=== PATIENT | female | born 1960 | race Caucasian/White ===

== ENCOUNTER 2021-02-15 14:51 | Emergency (ER) | payer OTHER, SELFPAY ==
[2021-02-15 15:10] VITALS: BP 132/93; PULSE 102; RESP 16; TEMP 37.1; O2SAT 99
--- NOTE | 2021-02-15 15:28 | ED.FEMALEGU ---
HPI - Female Genitourinary General Chief complaint: Urogenital-Female Stated complaint: UTI,Fever Time Seen by Provider: 02/15/21 15:10 Source: patient, RN notes reviewed and old records reviewed Mode of arrival: ambulatory Limitations: no limitations History of Present Illness HPI Narrative: 61 year old female who presents to express care with complaints of acute burning with urination since yesterday, low grade fevers, urgency and frequency of urination. Patient reports that she started having some suprapubic tenderness and pressure this morning also. She reports no vaginal discharge or itching, denies any concern for STD exposure. Patient has not taken any OTC AZO for her symptoms. MD elicited complaint: dysuria Related Data Home Medications Medication Instructions Recorded Confirmed albuterol sulfate 2 inh INHALATION DIRECTED 02/15/21 02/15/21 famotidine 40 mg PO DAILY 02/15/21 02/15/21 gemfibrozil 600 mg PO DAILY 02/15/21 02/15/21 metformin 500 mg PO DAILY 02/15/21 02/15/21 Allergies Allergy/AdvReac Type Severity Reaction Status Date / Time meperidine Allergy Mild Other Verified 02/15/21 15:31 Review of Systems Review of Systems: CONSTITUTIONAL: positive for low grade fever, chills, or sweats. EYES: Denies visual changes, redness, or discharge. ENT: Denies rhinorrhea, congestion, sore throat, or otalgia. CARDIOVASCULAR: Denies chest pain, palpitations, or edema. RESPIRATORY: Denies cough or dyspnea. GASTROINTESTINAL: suprapubic abdominal pain,no nausea, vomiting, or diarrhea. GENITOURINARY Positive dysuria or hematuria. SKIN: Denies rash or itching. MUSCULOSKELETAL: Denies back pain, joint pain, or myalgia. NEUROLOGIC: Denies headache, numbness, or weakness. PSYCHIATRIC: Denies anxiety or depression. All systems reviewed & are unremarkable except as noted in HPI and below PMFSH Past Medical History Medical History (Updated 02/17/21 @ 11:58 by Chelsea Valenzuela NP) Arthritis GERD (gastroesophageal reflux disease) Hyperlipidemia Hypertension Insulin resistance Migraine Surgical History Surgical History (Updated 02/17/21 @ 11:50 by Chelsea Valenzuela NP) History of cholecystectomy History of lumpectomy of right breast Hx of tonsillectomy Family History Family History (Updated 02/17/21 @ 11:52 by Chelsea Valenzuela NP) Grandparent Acute myocardial infarction Cerebrovascular accident Mother Heart disease Sibling Lung cancer Social History Social History (Updated 02/17/21 @ 11:52 by Chelsea Valenzuela NP) Smoking packs per day: 1 Smoking cigarettes per day: 20.0 Years smoked: 30 Smoking pack-years: 30.00 Smoking status: Current every day smoker Tobacco type: cigarettes Alcohol intake: current Alcohol use details: rare Substance use: never Living arrangements: with family Gender identity (if verbalized by the patient): Female Comments At time of signature, agree with nursing past medical, surgical, social and family history. There is no relevant family history pertinent to the presenting complaint Exam Narrative: GENERAL: Well-appearing, well-nourished, and in no acute distress. HEAD: Normocephalic, atraumatic. EYES: PERRLA and EOMI. ENT: Nares clear, no rhinorrhea or epistaxis. Mucous membranes moist. NECK: Supple.no lymphadenopathy CHEST: Clear to auscultation. No respiratory distress.SAO2 99% on room air HEART: Regular rate and rhythm. No murmur heard. Normal peripheral pulses. ABDOMEN: Soft, suprapubic tender, nondistended, normal active bowel sounds.No CVA tenderness on examination EXTREMITIES: Normal range of motion. No edema. SKIN: Warm, dry, no rash. NEURO: No focal deficits. Alert and oriented x3. Course Vital Signs Vital signs: Vital Signs Temperature 37.1 C 02/15/21 15:10 Pulse Rate 102 H 02/15/21 15:10 Respiratory Rate 16 02/15/21 15:10 Blood Pressure 132/93 H 02/15/21 15:10 Pulse Oximetry 99 02/15/21 15:10 Temperatu
== END 2021-02-15 15:55 | disposition home or self-care (01) ==
PROVIDERS: Emergency Provider Registered Nurse
DX: N39.0 Urinary tract infection, site not specified (principal); F17.210 Nicotine dependence, cigarettes, uncomplicated; M19.90 Unspecified osteoarthritis, unspecified site; K21.9 Gastro-esophageal reflux disease without esophagitis; E78.5 Hyperlipidemia, unspecified; I10 Essential (primary) hypertension
CPT/HCPCS: 81003; 87077; 87086; 87088; 87186; 99213; G0463

== ENCOUNTER 2021-07-22 04:18 | Emergency (ER) | payer OTHER, SELFPAY ==
[2021-07-22 04:24] VITALS: BP 144/99; PULSE 102; RESP 18; TEMP 36.2; O2SAT 98
[2021-07-22 05:50] LABS: Add Urine Microscopic? YES; Appearance Urine Turbid (Clear); Bacteria Urine 2+ /hpf; Bilirubin Urine Negative (Negative); Blood Urine 3+ (Negative); Color Urine Red (Yellow); Glucose Urine UA Negative (Negative); Ketones Urine Negative (Negative); Leukocyte Esterase Ur 1+ LEU/UL (Negative); Mucus Urine Heavy /lpf; Nitrate Urine Negative (Negative); Protein Urine 2+ mg/dL (Negative); RBC Urine >75 /hpf (0-2); Urobilinogen Urine Negative mg/dL (<2.0); WBC Clumps Urine Present /HPF; WBC Urine >75 /hpf
--- NOTE | 2021-07-22 06:11 | ED.FEMALEGU ---
HPI - Female Genitourinary General Chief complaint: Urogenital-Female Stated complaint: urinary issues Time Seen by Provider: 07/22/21 05:19 History of Present Illness HPI Narrative: Patient is a 61-year-old female who presents to the ER with concerns for UTI. Has had some discomfort with urinating last couple days but woke up this morning with burning and hematuria. No fevers or chills or sweats. No radiation of pain. Patient would like some Pyridium for discomfort and also requires Diflucan if on antibiotics. Related Data Home Medications Medication Instructions Recorded Confirmed albuterol sulfate 2 inh INHALATION DIRECTED 02/15/21 02/15/21 famotidine 40 mg PO DAILY 02/15/21 02/15/21 gemfibrozil 600 mg PO DAILY 02/15/21 02/15/21 metformin 500 mg PO DAILY 02/15/21 02/15/21 Allergies Allergy/AdvReac Type Severity Reaction Status Date / Time meperidine Allergy Mild Other Verified 07/22/21 05:15 Review of Systems Constitutional: Constitutional: Denies chills and Denies fatigue Gastrointestinal: Gastrointestinal: Denies abdominal pain, Denies nausea and Denies vomiting Genitourinary: Genitourinary: Reports hematuria, Reports nocturia, Reports dysuria, Denies flank pain and Denies urinary incontinence [facility] Past Medical History Medical History (Updated 07/22/21 @ 06:11 by Alon Gonsalez MD) Arthritis GERD (gastroesophageal reflux disease) Hyperlipidemia Hypertension Insulin resistance Migraine Surgical History Surgical History (Updated 02/17/21 @ 11:50 by Chelsea Valenzuela NP) History of cholecystectomy History of lumpectomy of right breast Hx of tonsillectomy Family History Family History (Updated 02/17/21 @ 11:52 by Chelsea Valenzuela NP) Grandparent Acute myocardial infarction Cerebrovascular accident Mother Heart disease Sibling Lung cancer Social History Social History (Updated 02/17/21 @ 11:52 by Chelsea Valenzuela NP) Smoking packs per day: 1 Smoking cigarettes per day: 20.0 Years smoked: 30 Smoking pack-years: 30.00 Smoking status: Current every day smoker Tobacco type: cigarettes Alcohol intake: current Alcohol use details: rare Substance use: never Gender identity (if verbalized by the patient): Female Exam Narrative: GENERAL: Well-appearing, well-nourished, and in no acute distress. HEAD: Normocephalic, atraumatic. CHEST: Clear to auscultation. No respiratory distress. HEART: Regular rate and rhythm. Normal peripheral pulses. ABDOMEN: Soft, nontender, nondistended. EXTREMITIES: Normal range of motion. No edema. SKIN: Warm, dry, no rash. NEURO: Alert and oriented x3. PSYCH: Normal mood and affect. Course Course Emergency Course: Discharge home with Bactrim which was used to treat her previous UTI. Vital Signs Vital signs: Vital Signs Temperature 97.2 F L 07/22/21 04:24 Pulse Rate 102 H 07/22/21 04:24 Respiratory Rate 18 07/22/21 04:24 Blood Pressure 144/99 H 07/22/21 04:24 Pulse Oximetry 98 07/22/21 04:24 Temperature 97.2 F L 07/22/21 04:24 Pulse Rate 102 H 07/22/21 04:24 Respiratory Rate 18 07/22/21 04:24 Blood Pressure 144/99 H 07/22/21 04:24 Pulse Oximetry 98 07/22/21 04:24 MDM - Female Genitourinary Lab Data Labs: Lab Results 07/22/21 Range/Units 05:21 Urine Color Red H (Yellow) Urine Appearance Turbid H (Clear) Urine pH 5.0 (5.0-9.0) Ur Specific [place] 1.020 (1.001-1.035) Urine Protein 2+ H (Negative) mg/dL Urine Glucose (UA) Negative (Negative) mg/dL Urine Ketones Negative (Negative) mg/dL Ur Blood (Man) 3+ H (Negative) Urine Nitrate Negative (Negative) Urine Bilirubin Negative (Negative) Urine Urobilinogen Negative (<2.0) mg/dL Leukocyte Esterase Rfl 1+ H (Negative) PRANEETH/UL Urine RBC >75 H (0-2) /hpf Urine WBC >75 H /hpf Urine WBC Clumps Present H (None) /HPF Urine Bacteria 2+ H /hpf Urine Mucus Heavy H /lpf Ur
[2021-07-22 06:23] VITALS: BP 132/89; PULSE 91; RESP 18; O2SAT 99
== END 2021-07-22 06:24 | disposition home or self-care (01) ==
PROVIDERS: Emergency Provider Emergency Medicine
DX: N39.0 Urinary tract infection, site not specified (principal); M19.90 Unspecified osteoarthritis, unspecified site; K21.9 Gastro-esophageal reflux disease without esophagitis; E78.5 Hyperlipidemia, unspecified; I10 Essential (primary) hypertension
CPT/HCPCS: 81001; 87077; 87086; 87186; 99283

== ENCOUNTER 2023-06-22 23:59 | Emergency (ER) | payer MEDICARE, OTHER, SELFPAY ==
[2023-06-23 00:04] VITALS: BP 144/80; PULSE 94; RESP 16; TEMP 36.3; O2SAT 99
[2023-06-23 01:00] LABS: Appearance Urine Clear (Clear); Bacteria Urine None Seen /hpf; Bilirubin Urine Negative (Negative); Blood Urine 3+ (Negative); Color Urine Yellow (Yellow); Glucose Urine UA Negative (Negative); Ketones Urine Negative (Negative); Leukocyte Esterase Ur 2+ LEU/UL (Negative); Nitrate Urine Negative (Negative); Non Pathogenic Casts 0-2; Protein Urine Negative (Negative); Specific Grav Ur 1.004 (1.001-1.035); Squamous Epithelial Cell Urine None seen /hpf (Few); Urobilinogen Urine 0.2 mg/dL (<2.0); WBC Urine 21-50 /hpf
[2023-06-23 01:03] LABS: Add Urine Microscopic? YES
--- NOTE | 2023-06-23 01:05 | ED.FEMALEGU ---
HPI - Female Genitourinary General Chief complaint: Urogenital-Female Stated complaint: blood in urine Time Seen by Provider: 06/23/23 00:29 Source: patient and family () Limitations: no limitations History of Present Illness HPI Narrative: Patient is a 63-year-old female presents to the emergency department complaining of blood in her urine and dysuria that started tonight and feels as though she has a UTI she has had this in the past. Patient denies any recent antibiotic use. Patient denies fevers, recent injuries, chest pain, shortness of breath, abdominal pain, flank pain, back pain, rash, history of drug-resistant infections, history of urology evaluation, nausea, vomiting, diarrhea, melena, hematochezia. Patient admits to they are just being a tinge of blood in the urine and did pass a small clot at some point as well and prior to that and I was urinating well but does admit to chronic urinary urgency. Related Data Home Medications Medication Instructions Recorded Confirmed albuterol sulfate 90 mcg/actuation 2 inh inhalation DIRECTED 02/15/21 02/15/21 aerosol inhaler famotidine 40 mg tablet 40 mg PO DAILY 02/15/21 02/15/21 gemfibrozil 600 mg tablet 600 mg PO DAILY 02/15/21 02/15/21 metformin 500 mg tablet,extended 500 mg PO DAILY 02/15/21 02/15/21 release 24 hr Allergies Allergy/AdvReac Type Severity Reaction Status Date / Time meperidine Allergy Mild Other Verified 07/22/21 05:15 Review of Systems Review of Systems: A 10 system review of systems was completed on the patient and is negative except for what is stated in the HPI. Nursing and ancillary documentation was reviewed. ON LICENSE OF [facility] Past Medical History Medical History (Updated 06/23/23 @ 01:12 by Rome Tariq DO) Arthritis GERD (gastroesophageal reflux disease) Hyperlipidemia Hypertension Insulin resistance Migraine Surgical History Surgical History (Updated 02/17/21 @ 11:50 by Chelsea Valenzuela NP) History of cholecystectomy History of lumpectomy of right breast Hx of tonsillectomy Family History Family History (Updated 02/17/21 @ 11:52 by Chelsea Valenzuela NP) Grandparent Acute myocardial infarction Cerebrovascular accident Mother Heart disease Sibling Lung cancer Social History Social History (Updated 02/17/21 @ 11:52 by Chelsea Valenzuela NP) Smoking packs per day: 1 Smoking cigarettes per day: 20.0 Years smoked: 30 Smoking pack-years: 30.00 Smoking status: Current every day smoker Tobacco type: cigarettes Alcohol intake: current Alcohol use details: rare Substance use: never Living arrangements: with family Gender identity (if verbalized by the patient): Female Comments At time of signature, I have reviewed and agree with nursing past medical, surgical, social and family history unless otherwise noted. Please see the nursing chart for further information. There is no relevant family history pertinent to the presenting complaint. Exam Narrative: CONST: No acute distress. Well nourished. HENMT: Head is normocephalic and atraumatic. Moist mucous membranes. No posterior oropharynx erythema. EYES: No conjunctival icterus, injection, or pallor. PERRL. NECK: No meningeal signs. RESP: Able to speak in full sentences. Normal respiratory effort. CTAB. CARDIO: Regular rate. Regular rhythm. 2+ DP and radial pulses bilaterally. GI: Nondistended. No tenderness to palpation. Soft. : No CVA tenderness to palpation. SKIN: No rashes or lesions noted on exposed skin. NEURO: Oriented x3. Moves all extremities. EXTREM/MSK/BACK: No pedal edema. PSYCH: Normal affect. Course Vital Signs Vital signs: Vital Signs Temperature 97.3 F L 06/23/23 00:04 Pulse Rate 94 06/23/23 00:04 Respiratory Rate 16 06/23/23 00:04 Blood Pressure 144/80 H 06/23/23 00:04 Pulse Oximetry 99 06/23/23 00:04 Oxygen Delivery Room Air 06/23/23 00:04 Temperature 97.3 F L 06/23
[2023-06-23] MEDS: SULFAMETHOXAZOLE/TRIMETHOPRIM 800/160 MG DS TABLET 1 TAB PO (01:38)
[2023-06-23 01:53] VITALS: BP 129/91; PULSE 84; RESP 14; O2SAT 98
== END 2023-06-23 01:54 | disposition home or self-care (01) ==
LOC: ANHED 06-23 01:16
PROVIDERS: Emergency Provider Student in an Organized Health Care Education/Training Program
DX: N39.0 Urinary tract infection, site not specified (principal); I10 Essential (primary) hypertension; E78.5 Hyperlipidemia, unspecified; E88.819 Insulin resistance, unspecified; M19.90 Unspecified osteoarthritis, unspecified site; K21.9 Gastro-esophageal reflux disease without esophagitis; F17.210 Nicotine dependence, cigarettes, uncomplicated; Z90.49 Acquired absence of other specified parts of digestive tract; Z79.84 Long term (current) use of oral hypoglycemic drugs
CPT/HCPCS: 81001; 87077; 87086; 87186; 99283; A9270

== ENCOUNTER 2023-10-03 18:02 | Emergency (ER) | payer MEDICARE, OTHER, SELFPAY ==
[2023-10-03 18:12] VITALS: BP 119/83; PULSE 90; RESP 18; TEMP 36.3; O2SAT 99
--- NOTE | 2023-10-03 18:20 | ED.FEMALEGU ---
HPI - Female Genitourinary General Chief complaint: Urogenital-Female Stated complaint: Uti Symptoms Time Seen by Provider: 10/03/23 18:21 Source: patient, RN notes reviewed and old records reviewed Mode of arrival: ambulatory Limitations: no limitations History of Present Illness HPI Narrative: 63-year-old female presents to the [facility] with concerns for and UTI. Patient has a history of UTIs. Patient reports since last night she has had burning, irritation. States it feels like she is not emptying her bladder. Denies any fevers, nausea, vomiting. Denies any abdominal pain Related Data Home Medications Medication Instructions Recorded Confirmed albuterol sulfate 90 mcg/actuation 2 inh inhalation DIRECTED 02/15/21 10/03/23 aerosol inhaler famotidine 40 mg tablet 40 mg PO DAILY 02/15/21 10/03/23 gemfibrozil 600 mg tablet 600 mg PO DAILY 02/15/21 10/03/23 metformin 500 mg tablet,extended 500 mg PO DAILY 02/15/21 10/03/23 release 24 hr Allergies Allergy/AdvReac Type Severity Reaction Status Date / Time meperidine Allergy Mild Other Verified 07/22/21 05:15 Review of Systems Review of Systems: All systems reviewed & are unremarkable except as noted in HPI and below Constitutional: Constitutional: Reports no additional constitutional complaints Eyes: Eyes: Reports no additional eye complaints ENT: Reports system reviewed and no additional complaints, except as documented Cardiovascular: Cardiovascular: Reports no additional cardiovascular complaints, Denies chest pain and Denies dyspnea Respiratory: Respiratory: Reports no additional respiratory complaints, Denies chest congestion, Denies cough and Denies dyspnea Gastrointestinal: Gastrointestinal: Reports no additional gastrointestinal complaints, Denies abdominal pain, Denies nausea and Denies vomiting Genitourinary: Genitourinary: Reports as per HPI and Reports dysuria Musculoskeletal: Musculoskeletal: Reports no additional musculoskeletal complaints Integumentary/Breasts: Skin/Breast: Reports system reviewed and no additional complaints, except as docu Neurologic: Reports system reviewed and no additional complaints, except as documented Psychiatric: Psychiatric: Reports no additional psychiatric complaints Allergic/Immunologic: Allergic/Immunologic: Reports no additional allergic/immunologic complaints PMFSH Past Medical History Medical History Arthritis GERD (gastroesophageal reflux disease) Hyperlipidemia Hypertension Insulin resistance Migraine Surgical History Surgical History History of cholecystectomy History of lumpectomy of right breast Hx of tonsillectomy Family History Family History Grandparent Acute myocardial infarction Cerebrovascular accident Mother Heart disease Sibling Lung cancer Social History Social History Smoking packs per day: 1 Smoking cigarettes per day: 20.0 Years smoked: 30 Smoking pack-years: 30.00 Smoking status: Current every day smoker Tobacco type: cigarettes Alcohol intake: current Alcohol use details: rare Substance use: never Living arrangements: with family Gender identity (if verbalized by the patient): Female Comments At the time of my signature, I reviewed and agree with the nursing past medical, surgical, social, and family history. There is no relevant family history pertinent to the patient complaint. Exam Const: General: cooperative, healthy appearing, comfortable, no acute distress, well developed, alert and well nourished Nutritional Appearance: well nourished Orientation/consciousness: patient oriented x3 Limitations: no limitations HENMT: Head: normal to inspection Ears: hearing grossly normal bilaterally and external ears normal
== END 2023-10-03 18:30 | disposition home or self-care (01) ==
PROVIDERS: Emergency Provider Nurse Practitioner
DX: N39.0 Urinary tract infection, site not specified (principal); M19.90 Unspecified osteoarthritis, unspecified site; K21.9 Gastro-esophageal reflux disease without esophagitis; E78.5 Hyperlipidemia, unspecified; I10 Essential (primary) hypertension; E88.819 Insulin resistance, unspecified; F17.210 Nicotine dependence, cigarettes, uncomplicated
CPT/HCPCS: 81003; 87086; 99213; G0463

== ENCOUNTER 2024-06-21 10:49 | Outpatient (CLI) | payer MEDICARE, OTHER, SELFPAY ==
--- NOTE | ~2024-06-21 | DEXA_ITS ---
Bone Density Report Name: SHREYA TEMPLETON Age: 64 Sex: Female Ethnicity: White Date of : 1960 Indication: postmenopausal; screening for osteoporosis; Referring Provider: KATE, MICHAEL Weller Study: Bone densitometry was performed. Exam Date: June 21, 2024 Accession number: [id number] Bone Density: Region BMD T-score Z-score Classification AP Spine(L1-L4) 0.972 -0.7 1.2 Normal Femoral Neck (Left) 0.728 -1.1 0.5 Osteopenia Total Hip (Left) 0.710 -1.9 -0.6 Osteopenia Femoral Neck (Right) 0.671 -1.6 0.0 Osteopenia Total Hip (Right) 0.735 -1.7 -0.4 Osteopenia Total Hip Mean 0.723 -1.8 -0.5 Osteopenia World Health Organization criteria for BMD impression classify patients as: Normal (T-score at or above -1.0), Osteopenia (T-score between -1.0 and -2.5), or Osteoporosis (T-score at or below -2.5). 10-year Fracture Risk(1): Major Osteoporotic Fracture 9.0% Hip Fracture 1.9% Reported Risk Factors: [place] (), Neck BMD=0.671, BMI=21.6, smoking (1) FRAX(R) Version 3.08. Fracture probability calculated for an untreated patient. Fracture probability may be lower if the patient has received treatment. Clinical Information Provided by Patient: Smokes Has used the following medications: Vitamin D Patient maximum height was 66 Menopause Age: 52 Drinks caffeinated beverages Onset of menses at age 11 Number of children 2 Missed period for more than 6 months in a row Impression: The patient has low bone mass, based on the Left Total Hip T-score. The patient has an estimated ten-year risk of hip fracture of 1.9% and an estimated ten-year risk of major fracture of 9%, based on the WHO FRAX algorithm. The patient has risk factors, including: smoking. Discussion: BONE DENSITY IS LOW AT ONE OR MORE SKELETAL SITES. This patient's lowest T-score is low at one or more skeletal sites. It meets the World Health Organization's (WHO) criteria for ?low bone mass? (T-score between -1.0 and -2.5). The patient's 10-year risk of fracture as calculated by FRAX is less than the threshold where pharmacological therapy is recommended by the National Osteoporosis Foundation (NOF). However, all treatment decisions require clinical judgment and consideration of individual patient factors, including patient preferences, comorbidities, previous drug use, risk factors not captured in the FRAX model (e.g., frailty, falls, vitamin D deficiency, increased bone turnover, interval significant decline in bone density) and possible under or overestimation of fracture risk by FRAX. The patient should follow a healthful lifestyle (good nutrition with adequate calcium and vitamin D, and appropriate weight-bearing exercise). Follow-Up: Consider repeating this study in 2 to 3 years to reassess this patient's status, or sooner if there is some new clinical indication. Reported by: ZACH on 06/21/2024 11:17:00 AM. Reviewed, dictated and finalized at location AKanika NELSON
== END 2024-06-21 10:50 | disposition home or self-care (01) ==
LOC: ANHIMG 10:51
PROVIDERS: Visit Provider Nurse Practitioner Family
DX: Z78.0 Asymptomatic menopausal state (principal); Z13.820 Encounter for screening for osteoporosis; M85.852 Other specified disorders of bone density and structure, left thigh; M85.851 Other specified disorders of bone density and structure, right thigh
CPT/HCPCS: 77080